=== PATIENT | male | born 1990 | race Hispanic/Latino ===

== ENCOUNTER 2024-07-17 18:51 | Emergency (ER) | payer SELFPAY ==
--- OUTSIDE RECORDS SUMMARY | 2024-07-17 18:54 | XMS REPORT | Continuity of Care Document ---
Author Name Unknown Address [address] [facility] [address] [place] [address] [facility] Address [address] [facility] [address] [place] [address] Care Team Providers Care V Belt Curer Name Role Phone Pcp, Patient Does Not Have A Primary Care Physic renata Danita Schmid RN Attending Clinician Unavailab le UNKNOWN, ATTENDING Attending Clinician Unavailab le Doctor Unassigned, [place] Attending Clinician U navailable Allergies, Adverse Reactions, Alerts Allergy Name Allergy Type Status Severity Reaction(s) Onset Date Inactive Date Treating Clinician Comments Source NO KNOWN ALLERGIE S Drug Class Active [facility] Social History Social Habit Start Date Stop Date Quantity Comments Source Exposure to SARS-CoV-2 (event) Not sure [facility] Sex Assigned At 1990 00:00:00 1990 00[birth year]00 [facility] Smoking Status Start Date Stop Date Source Unknown if ever smoked [facility] Procedures Procedure Date / Time Performed Performing Clinicia n Source NOTICE OF PRIVACY PRACTICES 2021-04-03 14:31:57 Doctor Unassigned, [place] [facility] CONSENT/REFUSAL FOR DIAGNOSIS AND TREATMENT 2021-04-03 14:31:40 Doctor Unassigned, [place] [facility] Encounters Start Date/Time End Date/Time Encounter Type Admission Type Attending Clinicians Care Facility Care Department Encounter ID Source 2021-04-04 00:00:00 2021-04-04 00:00:00 Letter (Out) Danita Schmid [facility] [id number] [facility] 2021-04-03 09:00:00 2021-04-03 09:00:00 Outpatient R UNKNOWN, ATTENDING [facility] [id number] [facility] 2021-04-03 00:00:00 2021-04-03 00:00:00 Orders Only Doctor Unassigned, [place] [facility] [id number] [facility]
[2024-07-17 22:17] LABS: Absolute Basophils 0.1 K/uL (0-0.5); Absolute Lymphocytes (CBC) 3.1 K/uL (0.7-4.9); Absolute Monocytes 0.7 K/uL (0.1-1.3); Absolute Neutrophil 5.8 K/uL (1.8-8.0); Basophils % 0.9 % (0-1.3); Eosinophils % 0.4 % (0-4.4); Hematocrit 44.2 % (39.6-49.0); Hemoglobin 15.5 g/dL (13.6-17.9); Lymphocytes % 32.3 % (15.3-44.8); MCH 27.8 pg (27.0-35.0); MCHC 35.2 g/dL (32.0-36.0); MPV 8.1 fL (7.6-11.3); Monocytes % 6.7 % (3.3-12.3); Neutrophils % 59.7 % (41.7-73.7); Platelets 206 thou/uL (152-406); RBC Red Blood Cell Count 5.59 M/uL (4.33-5.43); Red Cell Distribution Width 14.1 % (12.1-15.2)
[2024-07-17 22:22] LABS: Specific Gravity > 1.030 (1.005-1.030); Sqamous Epithelial <5 /HPF (None Seen); Urine Bacteria <20 /HPF (<20); Urine Bilirubin NEGATIVE (Negative); Urine Blood Negative (Negative); Urine Clarity Clear (Clear); Urine Color Yellow (Yellow); Urine Culture Reflex Order NOT NEEDED; Urine Glucose 4+ (Over) (Negative); Urine Ketones 2+ (Negative); Urine Microscopic Reflex YN ORDER UMIC; Urine Mucus 2+ /HPF (None Seen); Urine Nitrite NEGATIVE (Negative); Urine Protein TRACE (Negative); Urine RBC <5 /HPF (None Seen); Urine Urobilinogen Normal (Normal); Urine WBC <5 /HPF (<5); Urine Yeast (Budding) Trace /HPF (None Seen)
[2024-07-17 22:36] LABS: Albumin 3.8 g/dL (3.4-5.0); Albumin/Globulin Ratio 0.8 (1.1-1.8); Anion Gap 8.4 mEq/L (5.0-15.0); Bilirubin Total 1.1 mg/dL (0.2-1.0); Globulin 4.7 g/dL (2.3-3.5); Potassium 3.4 mEq/L (3.5-5.1); Protein, Total 8.5 g/dL (6.4-8.2)
--- NOTE | 2024-07-17 23:48 | EDPHYS ---
Physician Documentation [facility] Name: Melvin Mullins Age: 33 yrs Sex: Male : 1990 Arrival Date: 07/17/2024 Time: 18:51 Bed 4 Private MD: ED Physician Rojas Miller HPI: 07/17 19:55 This 33 yrs old Male presents to ER via Ambulatory with complaints of High cp Blood Sugar. 19:55 The patient or guardian reports hyperglycemia. cp 19:55 Onset: The symptoms/episode began/occurred at an unknown time. Patient is 33 y/o male cp with no known history of diabetes who was referred to ED by urgent care for elevated blood glucose. Patient reports he was seen and evaluated at urgent care for swelling of foreskin. Historical: - Allergies: 19:20 No Known Allergies; cm10 - Home Meds: 19:20 None [Active]; cm10 - PMHx: 19:20 None; cm10 - PSHx: 19:20 None; cm10 - Immunization history:: Adult Immunizations up to date. - Infectious Disease History:: Denies. - Social history:: Smoking status: Patient/guardian denies using tobacco, the patient reports quitting approximately 2 years ago. ROS: 20:00 Constitutional: Negative for body aches, chills, fever, poor PO intake, cp 20:00 Eyes: Negative for injury, pain, redness, and discharge, cp 20:00 Cardiovascular: Negative for chest pain, 20:00 Respiratory: Negative for cough, shortness of breath, wheezing, 20:00 Abdomen/GI: Negative for abdominal pain, vomiting, diarrhea, constipation, 20:00 Back: Negative for pain at rest, pain with movement, 20:00 Neuro: Negative for altered mental status, dizziness, headache, weakness, 20:00 Endocrine: Positive for elevated blood glucose, 20:00 All other systems are negative, Exam: 20:05 Constitutional: The patient appears in no acute distress, alert, awake, cp non-diaphoretic, non-toxic, well developed, well nourished, obese, 20:05 Head/Face: Normocephalic, atraumatic. cp 20:05 Eyes: Periorbital structures: appear normal, Conjunctiva: normal, no exudate, no cp injection, Sclera: no appreciated abnormality, Lids and lashes: appear normal, bilaterally, 20:05 ENT: External ear(s): are unremarkable, Nose: is normal, Mouth: Lips: moist, Oral cp mucosa: pink and intact, moist, Posterior pharynx: Airway: no evidence of obstruction, patent, 20:05 Neck: ROM/movement: is normal, is supple, without pain, no range of motions limitations, 20:05 Chest/axilla: Inspection: normal, 20:05 Cardiovascular: Rate: tachycardic, Rhythm: regular, 20:05 Respiratory: the patient does not display signs of respiratory distress, Respirations: normal, no use of accessory muscles, no retractions, labored breathing, is not present, Breath sounds: are clear throughout, no decreased breath sounds, no stridor, no wheezing, 20:05 Abdomen/GI: Exam negative for discomfort, distension, guarding, Inspection: abdomen appears normal, 20:05 Back: pain, is absent, ROM is normal, 20:05 Neuro: Orientation: is normal, Mentation: is normal, Motor: moves all fours, strength is normal, Gait: is steady, at a normal pace, without difficulty, Vital Signs: 19:18 BP 137 / 102; Pulse 101; Resp 18; Temp 98.6; Pulse Ox 99% ; Weight 108.86 kg; Height 5 cm10 ft. 10 in. ; Pain /10; 07/18 00:20 BP 127 / 82; Pulse 80; Resp 19 S; Temp 97.8(T); Pulse Ox 99% on R/A; ha1 07/17 19:18 Body Mass Index 34.44 (108.86 kg, 177.8 cm) cm10 07/17 19:18 Pain Scale: Adult cm10 MDM: 07/17 20:10 Differential diagnosis: diabetes insipidus, DKA, hyperglycemia, hyperthyroidism, new cp onset diabetes. 23:47 Medical Screening Exam initiated cp 23:47 Data reviewed: vital signs, nurses notes, lab test result(s), radiologic studies, cp ultrasound, and as a result, I will discharge patient. 23:47 Counseling: I had a detailed discussion with the patient and/or guardian regarding the cp historical points, exam findings, and any diagnostic results supporting the discharge/admit diagnosis, lab results, the need for outpatient follow up, for definitive care, a family practitioner, to return to the emergency department if symptoms worsen or persist or if there are any questions or concerns that arise at home. Response to treatment: the patient's symptoms have mildly improved after treatment, and as a result, I will discharge patient. 07/17 19:28 Order name: Glucose, Ancillary Testing; Complete Time: 19:53 EDMS 07/17 19:54 Order name: CBC with Diff; Complete Time: 22:39 cp 07/17 22:39 Interpretation: Normal except: RBC 5.59; MCV 79.0. cp 07/17 19:54 Order name: CMP; Complete Time: 22:39 cp 07/17 22:39 Interpretation: Normal except: NA 134; K 3.4; GLUC 235; ALT 68; BILIT 1.1; TP 8.5; GLOB cp 4.7; A/G 0.8. 07/17 19:54 Order name: Lipase; Complete Time: 22:39 cp 07/17 19:54 Order name: Urinalysis w/ reflexes; Complete Time: 22:39 cp 07/17 22:41 Order name: US Abdomen Limited: elevated liver enzymes cp 07/17 19:54 Order name: IV Saline Lock; Complete Time: 22:11 cp 07/17 19:54 Order name: Labs collected and sent; Complete Time: 22:11 cp Administered Medications: 23:50 Drug: NS 0.9% IV 1000 ml IV at 1 bolus Per protocol; to be given as a bolus over 60 ha1 minutes Route: IV; Rate: 1 bolus; Site: right antecubital; 07/18 00:33 Follow up: Response: No adverse reaction; IV Status: Completed infusion; IV Intake: ha1 1000ml Point of Care Testing: Blood Glucose: 07/17 19:20 Blood Glucose: 263 mg/dL; cm10 Ranges: Critical Glucose Levels:Adult <50 mg/dl or >400 mg/dl <40 mg/dl or >180 mg/dl Disposition Summary: 07/17/24 23:47 Discharge Ordered Notes: Location: Home cp Problem: new cp Symptoms: have improved cp Condition: Stable cp Diagnosis - Hyperglycemia, unspecified cp Followup: cp - With: Private Physician - When: 2 - 3 days - Reason: Recheck today's complaints Discharge Instructions: - Discharge Summary Sheet cp - Hyperglycemia cp - Blood Glucose Monitoring, Adult cp - Preventing Type 2 Diabetes Mellitus cp - Prediabetes Eating Plan cp Forms: - Medication Reconciliation Form cp - Antibiotic Education cp - Prescription Opioid Use cp - Patient Portal Instructions cp - Leadership Thank You Letter cp Signatures: Dispatcher [employer] EDMS Rojas Partida PA PA cp Analy Lopes, RN RN ha1 Penny Vasquez RN RN cm10 Corrections: (The following items were deleted from the chart) 19:55 19:55 CBC+H.LAB.BRZ ordered. EDMS EDMS 19:55 19:55 COMPREHENSIVE METABOLIC PANEL+C.LAB.BRZ ordered. EDMS EDMS 19:55 19:55 LIPASE+C.LAB.BRZ ordered. EDMS EDMS 19:55 19:55 Urinalysis+U.LAB.BRZ ordered. EDMS EDMS 19:55 19:55 HEMOGLOBIN A1C+CHEM A1C.LAB.BRZ ordered. EDMS EDMS 07/18 22:57 02 19:55 Patient is 33 y/o male with no known history of diabetes who was referred cp to ED by urgent care for elevated blood glucose. cp
--- NOTE | 2024-07-17 23:48 | ER ---
Nurse's Notes [facility] Name: Melvin Mullins Age: 33 yrs Sex: Male : 1990 Arrival Date: 07/17/2024 Time: 18:51 Bed 4 Private MD: Diagnosis: Hyperglycemia, unspecified Presentation: 07/17 19:18 Chief complaint: Patient states: Sent to the ER from urgent care due to blood sugar cm10 being elevated. Pt states that his blood sugar was 321. Pt denies a history of diabetes. reports excess fatigue and increased urination. Coronavirus screen: Client denies travel out of the [place] in the last 14 days. Ebola Screen: Patient denies travel to an Ebola-affected area in the 21 days before illness onset. Initial Sepsis Screen: Does the patient meet any 2 criteria? HR > 90 bpm. Does the patient have a suspected source of infection? No. Patient's initial sepsis screen is negative. Risk Assessment: Do you want to hurt yourself or someone else? Patient reports no desire to harm self or others. Onset of symptoms was July 17, 2024. 19:18 Method Of Arrival: Ambulatory cm10 19:18 Acuity: EMIR 3 cm10 Triage Assessment: 19:21 General: Appears in no apparent distress. comfortable, Behavior is calm, cooperative. cm10 Neuro: No deficits noted. Level of Consciousness is awake, alert, obeys commands, Oriented to person, place, time, situation, Appropriate for age. Respiratory: No deficits noted. Airway is patent Respiratory effort is even, unlabored, Respiratory pattern is regular, symmetrical. Historical: - Allergies: 19:20 No Known Allergies; cm10 - Home Meds: 19:20 None [Active]; cm10 - PMHx: 19:20 None; cm10 - PSHx: 19:20 None; cm10 - Immunization history:: Adult Immunizations up to date. - Infectious Disease History:: Denies. - Social history:: Smoking status: Patient/guardian denies using tobacco, the patient reports quitting approximately 2 years ago. Screenin/08 00:[address] [facility] ED Fall Risk Assessment (Adult) History of falling in the last 3 months, ha1 including since admission No falls in past 3 months (0 pts) Confusion or Disorientation No (0 pts) Intoxicated or Sedated No (0 pts) Impaired Gait No (0 pts) Mobility Assist Device Used No (0 pt) Altered Elimination No (0 pt) Score/Fall Risk Level 0 - 2 = Low Risk Oriented to surroundings, Maintained a safe environment, Educated pt \T\ family on fall prevention, incl call for assistance when getting out of bed, Hourly rounding (assess needs \T\ fall precautionary measures) done. Abuse screen: Denies threats or abuse. Denies injuries from another. Nutritional screening: No deficits noted. Tuberculosis screening: No symptoms or risk factors identified. Assessment: 07/17 23:40 General: Appears comfortable, Behavior is calm, cooperative. Pain: Denies pain. Neuro: ha1 Level of Consciousness is awake, alert, obeys commands, Oriented to person, place, time, situation. Cardiovascular: Capillary refill < 3 seconds Patient's skin is warm and dry. Respiratory: Airway is patent Respiratory effort is even, unlabored, Respiratory pattern is regular, symmetrical. GI: Abdomen is round non-distended, obese, Reports elevated glucose level. : No signs and/or symptoms were reported regarding the genitourinary system. Derm: Skin is pink, warm \T\ dry. Musculoskeletal: Circulation, motion, and sensation intact. Range of motion: intact in all extremities. 07/18 00:35 Reassessment: Patient and/or family updated on plan of care and expected duration. Pain ha1 level reassessed. Patient is alert, oriented x 3, equal unlabored respirations, skin warm/dry/pink. Vital Signs: 07/17 19:18 BP 137 / 102; Pulse 101; Resp 18; Temp 98.6; Pulse Ox 99% ; Weight 108.86 kg; Height 5 cm10 ft. 10 in. ; Pain 5/10; 07/18 00:20 BP 127 / 82; Pulse 80; Resp 19 S; Temp 97.8(T); Pulse Ox 99% on R/A; ha1 07/17 19:18 Body Mass Index 34.44 (108.86 kg, 177.8 cm) cm10 07/17 19:18 Pain Scale: Adult cm10 ED Course: 07/17 18:54 Patient arrived in ED. im 19:20 Triage completed. cm10 19:21 Arm band placed on right wrist. Patient placed in waiting room. cm10 19:53 Rojas Partida PA is PHCP. cp 19:53 Rojas Miller MD is Attending Physician. cp 22:12 CBC with Diff Sent. cm10 22:12 CMP Sent. cm10 22:12 Lipase Sent. cm10 22:12 Urinalysis w/ reflexes Sent. cm10 22:12 Initial lab(s) drawn, by vt, sent to lab. Urine collected: clean catch specimen. cm10 Inserted saline lock: 20 gauge in right antecubital area, using aseptic technique. Blood collected. Flushed with 10 mL NS. 23:00 Patient has correct armband on for positive identification. Placed in gown. Bed in low ha1 position. Call light in reach. Side rails up X 1. Adult w/ patient. 23:00 Provided Education on: plan of care . ha1 23:45 US Abdomen Limited: elevated liver enzymes In Process Unspecified. EDMS 02 00:35 No provider procedures requiring assistance completed. IV discontinued, intact, ha1 bleeding controlled, No redness/swelling at site. Pressure dressing applied. Administered Medications: 07/17 23:50 Drug: NS 0.9% IV 1000 ml IV at 1 bolus Per protocol; to be given as a bolus over 60 ha1 minutes Route: IV; Rate: 1 bolus; Site: right antecubital; 07/18 00:33 Follow up: Response: No adverse reaction; IV Status: Completed infusion; IV Intake: ha1 1000ml Medication: 00:36 VIS not applicable for this client. ha1 Point of Care Testing: Blood Glucose: 07/17 19:20 Blood Glucose: 263 mg/dL; cm10 Ranges: Intake: 07/18 00:33 IV: 1000ml; Total: 1000ml. ha1 Outcome: 07/17 23:47 Discharge ordered by . cp 07/18 00:35 Discharged to home ambulatory, with family, ha1 Condition: stable Discharge instructions given to patient, family, Instructed on discharge instructions, follow up and referral plans. Demonstrated understanding of instructions, follow-up care, 00:36 Patient left the ED. ha1 Signatures: Dispatcher [employer] EDWA Rojas Partida PA PA cp Ayala, Heidy RN RN ha1 Анна Dominique Clarissa, RN RN cm10
--- NOTE | 2024-07-18 00:49 | RAD REPORT ---
EXAM: US Abdomen Limited, Gallbladder CLINICAL HISTORY: The patient is 33 years old and is Male; gallbladder TECHNIQUE: Real-time ultrasound of the right upper quadrant with image documentation. COMPARISON: No relevant prior studies available. FINDINGS: GALLBLADDER: Unremarkable. No gallstones. COMMON BILE DUCT: Unremarkable as visualized. No stones. No dilation. Negative sonographic Mu rphy sign. LIVER: Increased in echogenicity with focal fatty sparing at the level of the gallbladder fossa. IMPRESSION: Normal gallbladder ultrasound. Electronically signed by: Katerin Harmon MD 07/18/2024 12:45 AM [facility] Due to temporary technical issues with the PACS/ApptheGame scribe reporting system, reports are being sign ed by the in-house radiologist without review as a courtesy to ensure prompt reporting the interpreting rad iologist is fully responsible for the content of the report. Transcribed Date/Time: 07/18/2024 12:49 AM
[2024-07-18 00:59] VITALS: BP 137/102; TEMP 98.6; O2SAT 99
== END 2024-07-18 00:36 | disposition home or self-care (01) ==
LOC: ER 18:51
DX: R73.9 Hyperglycemia, unspecified (principal)
CPT/HCPCS: 36415; 76705; 80053; 81001; 82947; 83690; 85025; 96360; 99284

== ENCOUNTER 2024-07-20 07:44 | Emergency (ER) | payer OTHER, SELFPAY ==
--- OUTSIDE RECORDS SUMMARY | 2024-07-20 07:47 | XMS REPORT | Continuity of Care Document ---
Author Name Unknown Address [address] [facility] [address] [place] [address] [facility] Address [address] [facility] [address] [facility] [address] [place] [address] Care Team Providers Care Piano Tuner Name Role Phone Pcp, Patient Does Not Have A Primary Care Physic renata Danita Schmid RN Attending Clinician Unavailab le UNKNOWN, ATTENDING Attending Clinician Unavailab le Doctor Unassigned, [place] Attending Clinician U navailable Allergies, Adverse Reactions, Alerts Allergy Name Allergy Type Status Severity Reaction(s) Onset Date Inactive Date Treating Clinician Comments Source NO KNOWN ALLERGIE S Drug Class Active [facility] Social History Social Habit Start Date Stop Date Quantity Comments Source Exposure to SARS-CoV-2 (event) Not sure [facility] Sex Assigned At 1990 00:00:00 1990 00:00:00 [facility] Smoking Status Start Date Stop Date Source Unknown if ever smoked [facility] Procedures Procedure Date / Time Performed Performing Clinicia n Source NOTICE OF PRIVACY PRACTICES 2021-04-03 14:31:57 Doctor Unassigned, [place] [facility] CONSENT/REFUSAL FOR DIAGNOSIS AND TREATMENT 2021-04-03 14:31:40 Doctor Unassigned, [place] [facility] Encounters Start Date/Time End Date/Time Encounter Type Admission Type Attending Clinicians Care Facility Care Department Encounter ID Source 2021-04-04 00:00:00 2021-04-04 00:00:00 Letter (Out) Danita Schmid [facility] [id number] [facility] 2021-04-03 09:00:00 2021-04-03 09:00:00 Outpatient R UNKNOWN, ATTENDING [facility] [id number] [facility] 2021-04-03 00:00:00 2021-04-03 00:00:00 Orders Only Doctor Unassigned, [place] [facility] [id number] [facility]
--- NOTE | 2024-07-20 08:07 | ER ---
Nurse's Notes [facility] Name: Melvin Mullins Age: 33 yrs Sex: Male : 1990 Arrival Date: 07/20/2024 Time: 07:44 Bed 18 Private MD: Diagnosis: Balanoposthitis;Type 2 diabetes mellitus with hyperglycemia Presentation: 07/20 07:56 Chief complaint: Patient states: swelling and pain at foreskin, has been on antibiotics iw and ointment. Coronavirus screen: At this time, the client does not indicate any symptoms associated with coronavirus-19. Ebola Screen: No symptoms or risks identified at this time. Initial Sepsis Screen: Does the patient meet any 2 criteria? No. Patient's initial sepsis screen is negative. Does the patient have a suspected source of infection? No. Patient's initial sepsis screen is negative. Risk Assessment: Do you want to hurt yourself or someone else? Patient reports no desire to harm self or others. Onset of symptoms was July 18, 2024. 07:56 Method Of Arrival: Ambulatory iw 07:56 Acuity: EMIR 4 iw Triage Assessment: 08:00 General: Appears in no apparent distress. uncomfortable, Behavior is calm, cooperative, bp appropriate for age. Pain: Complains of pain in pelvis. EENT: No deficits noted. Neuro: No deficits noted. Cardiovascular: No deficits noted. Respiratory: No deficits noted. GI: No signs and/or symptoms were reported involving the gastrointestinal system. : No signs and/or symptoms were reported regarding the genitourinary system. Derm: REDNESS/IRRITATION TO GROIN. Musculoskeletal: No deficits noted. Historical: - Allergies: 07:58 No Known Allergies; iw - Home Meds: 07:58 None [Active]; iw - PMHx: 07:58 None; iw - PSHx: 07:58 None; iw - Immunization history:: Adult Immunizations up to date. - Infectious Disease History:: Denies. - Social history:: Smoking status: . Screenin:00 [facility] ED Fall Risk Assessment (Adult) History of falling in the last 3 months, bp including since admission No falls in past 3 months (0 pts) Confusion or Disorientation No (0 pts) Intoxicated or Sedated No (0 pts) Impaired Gait No (0 pts) Mobility Assist Device Used No (0 pt) Altered Elimination No (0 pt) Score/Fall Risk Level 0 - 2 = Low Risk Oriented to surroundings. Abuse screen: Denies threats or abuse. Denies injuries from another. Nutritional screening: No deficits noted. Tuberculosis screening: No symptoms or risk factors identified. Assessment: 08:00 General: SEE TRIAGE NTOE. bp Vital Signs: 07:58 BP 146 / 108; Pulse 100; Resp 18; Temp 97.6; Pulse Ox 100% on R/A; iw ED Course: 07:46 Patient arrived in ED. mr 07:48 Bang Valenzuela MD is Attending Physician. rt 07:57 Triage completed. iw 07:58 Arm band placed on. iw 08:00 Patient has correct armband on for positive identification. bp 08:00 No provider procedures requiring assistance completed. bp 08:02 Aramis Cheng, RN is Primary Nurse. bp 08:06 Jaden Dang MD is Referral Physician. rt 08:32 Patient did not have IV access during this emergency room visit. bp Administered Medications: 08:24 Drug: Fluconazole PO 200 mg PO once Route: PO; bp 08:32 Follow up: Response: No adverse reaction bp 08:25 Drug: Ketorolac IM 30 mg IM once Route: IM; Site: right deltoid; bp 08:33 Follow up: Response: No adverse reaction bp Medication: 08:00 VIS not applicable for this client. bp Outcome: 08:07 Discharge ordered by . rt 08:32 Discharged to home ambulatory, with family, bp 08:32 Condition: stable 08:32 Discharge instructions given to patient, Instructed on discharge instructions, follow up and referral plans. medication usage, wound care, Demonstrated understanding of instructions, follow-up care, medications, wound care, Prescriptions given X 2, 08:33 Patient left the ED. bp Signatures: Jaky Desir, Reg Reg Flor Melchor RN RN iw Aramis Cheng, FLAKO ARRIOLA bp Bang Valenzuela MD MD rt
--- NOTE | 2024-07-20 08:07 | EDPHYS ---
Physician Documentation [facility] Name: Melvin Mullins Age: 33 yrs Sex: Male : 1990 Arrival Date: 07/20/2024 Time: 07:44 Bed 18 Private MD: ED Physician Bang Valenzuela HPI: 07/20 09:07 This 33 yrs old Male presents to ER via Ambulatory with complaints of Penile rt Problem. 09:07 Patient had a recent diagnosis of type 2 diabetes, has not yet been started on rt antihyperglycemic's, was seen at an urgent care recently for swelling to the foreskin, was diagnosed with a balanoposthitis, was prescribed ketoconazole, mupirocin, cephalexin. States that his symptoms have worsened, has pain at the skin when he urinates. Denies other acute complaints at this time, symptoms are mild in severity, no other aggravating or alleviating factors.. Historical: - Allergies: 07:58 No Known Allergies; iw - Home Meds: 07:58 None [Active]; iw - PMHx: 07:58 None; iw - PSHx: 07:58 None; iw - Immunization history:: Adult Immunizations up to date. - Infectious Disease History:: Denies. - Social history:: Smoking status: . ROS: 09:08 Constitutional: Negative for fever, chills, and weight loss, Cardiovascular: Negative rt for chest pain, palpitations, and edema, Respiratory: Negative for shortness of breath, cough, wheezing, and pleuritic chest pain, Abdomen/GI: Negative for abdominal pain, nausea, vomiting, diarrhea, and constipation, MS/Extremity: Negative for injury and deformity, Skin: Negative for injury, rash, and discoloration, 09:08 : Positive for Swelling to the foreskin, pain, Exam: 09:08 Constitutional: This is a well developed, well nourished patient who is awake, alert, rt and in no acute distress. Head/Face: Normocephalic, atraumatic. Chest/axilla: Normal chest wall appearance and motion. Nontender with no deformity. No lesions are appreciated. Cardiovascular: Regular rate and rhythm with a normal S1 and S2. No gallops, murmurs, or rubs. Normal PMI, no JVD. No pulse deficits. Respiratory: Lungs have equal breath sounds bilaterally, clear to auscultation and percussion. No rales, rhonchi or wheezes noted. No increased work of breathing, no retractions or nasal flaring. Abdomen/GI: Soft, non-tender, with normal bowel sounds. No distension or tympany. No guarding or rebound. No evidence of tenderness throughout. 09:08 : Edema with discharge noted to the foreskin, difficult to retract, consistent with balanoposthitis, Vital Signs: 07:58 BP 146 / 108; Pulse 100; Resp 18; Temp 97.6; Pulse Ox 100% on R/A; iw MDM: 07:50 Medical Screening Exam initiated rt 09:08 Differential diagnosis: Balanoposthitis, diabetes. Data reviewed: vital signs, nurses rt notes. I considered the following discharge prescriptions or medication management in the emergency department Medications were administered in the Emergency Department. See MAR. Care significantly affected by the following chronic conditions: Diabetes. Counseling: I had a detailed discussion with the patient and/or guardian regarding the historical points, exam findings, and any diagnostic results supporting the discharge/admit diagnosis, the need for outpatient follow up. ED course: Physical exam findings are consistent with balanoposthitis, states that is worsening despite being on ketoconazole, will prescribe nystatin triamcinolone. Patient is a new onset diabetic, is not yet been started on medicines, we will start him on diabetic medications, this will likely improve his clinical course. Stable vital signs, recent negative urinalysis, do not believe that further blood work, urinalysis are needed.. 07/20 08:06 Order name: Destiny; Complete Time: 08:24 rt Administered Medications: 08:24 Drug: Fluconazole PO 200 mg PO once Route: PO; bp 08:32 Follow up: Response: No adverse reaction bp 08:25 Drug: Ketorolac IM 30 mg IM once Route: IM; Site: right deltoid; bp 08:33 Follow up: Response: No adverse reaction bp Disposition Summary: 07/20/24 08:07 Discharge Ordered Notes: Location: Home rt Problem: an ongoing problem rt Symptoms: are unchanged rt Condition: Stable rt Diagnosis - Balanoposthitis rt - Type 2 diabetes mellitus with hyperglycemia rt Followup: rt - With: Jaden Dang MD - When: 10 - 14 days - Reason: Discharge Instructions: - Discharge Summary Sheet rt - Balanitis rt - Type 2 Diabetes Mellitus, Diagnosis, Adult rt Forms: - Work release form bd - Medication Reconciliation Form rt - Antibiotic Education rt - Prescription Opioid Use rt - Patient Portal Instructions rt - Leadership Thank You Letter rt Prescriptions: - Metformin 500 mg Oral Tablet - take 1 tablet ORAL route once daily for 7 days Then take 1 tablet with morning rt meals AND evening meals; 21 tablet; Refills: 0, Product Selection Permitted - Nystatin-Triamcinolone 100,000-0.1 unit/g-% Topical cream - apply 1 application TOPICAL route 2 times per day; 1 Each; Refills: 0, Product rt Selection Permitted Signatures: Flor Melchor RN RN iw Peltier, Brian, RN RN Bang Snow MD MD rt
[2024-07-20] MEDS ORDERED: KETOROLAC 30 MG/ML INJ ONE (08:20)
[2024-07-20] MEDS ORDERED: FLUCONAZOLE 100 MG TAB ONE (08:20)
[2024-07-20 08:37] VITALS: BP 146/108; TEMP 97.6; O2SAT 100
== END 2024-07-20 08:33 | disposition home or self-care (01) ==
LOC: ER 07:44
DX: N47.6 Balanoposthitis (principal); E11.65 Type 2 diabetes mellitus with hyperglycemia
CPT/HCPCS: 82947; 96372; 99284